=== PATIENT | female | born 1965 ===

== ENCOUNTER 2018-12-07 17:28 | Emergency (ER) | payer MEDICAID ==
[~2018-12-07] VITALS: Ht 162.6 cm; Wt 78.2 kg
[2018-12-07] MEDS ORDERED: SULFAMETHOX/TRIMETH DS 800-160 MG/TABLET PO ONE (18:45)
[2018-12-07] MEDS ORDERED: LIDOCAINE/PF 1% 2 ML VIAL IM ONE (18:45)
[2018-12-07] MEDS ORDERED: ACETAMINOPHEN 500 MG TABLET PO ONE (18:45)
[2018-12-07] MEDS ORDERED: PERTUSS(ACELL),DIPH,TET VAC/PF 0.5 ML VIAL IM ONE (18:45)
[2018-12-07] MEDS ORDERED: CefTRIAXone SODIUM 1 GM/VIAL IM ONE (18:45)
[2018-12-07 20:23] VITALS: BP 151/89
== END 2018-12-07 20:34 | disposition home or self-care (01) ==
LOC: EMS 17:30
DX: L03.113 Cellulitis of right upper limb (principal); Z95.0 Presence of cardiac pacemaker; Z90.710 Acquired absence of both cervix and uterus
CPT/HCPCS: 90471; 90715; 96372; 99283; J0696; J3490